=== PATIENT | female | born 1980 | race Caucasian/White ===

== ENCOUNTER 2019-05-22 17:49 | Emergency (ER) | payer OTHER ==
[2019-05-22] MEDS ORDERED: IBUPROFEN 600 MG TABLET (FP) PO ONE ×2 (18:29→20:23)
--- NOTE | 2019-05-22 18:29 | PDOC ---
Rapid Medical Evaluation Time Seen by Provider: 05/22/19 18:25 Medical Evaluation: Allergies Allergy/AdvReac Type Severity Reaction Status Date / Time No Known Allergies Allergy Verified 05/11/13 21:34 05/22/19 18:26 CC: L ear difficulty hearing, head pressure Pt is a 38 y/o female with difficulty hearing in her L ear and frontal head pressure. No fevers. She states the pain is making her nauseated and is giving her some dizziness. Took Tylenol which did not help 2 days ago. Brief exam: No distress, non-toxic, no tenderness to tapping over frontal or maxillary sinuses. Orders: motrin To ED for further evaluation Discharge Disposition - Diagnosis Hearing difficulty of left ear - Referrals - Patient Instructions - Post Discharge Activity
[2019-05-22 18:30] VITALS: TEMP 98.3; BMI 30.2
--- NOTE | 2019-05-22 20:36 | PDOC ---
History of Present Illness - General Chief Complaint: Headache Stated Complaint: HEADACHE Time Seen by Provider: 05/22/19 18:25 History Source: Patient - History of Present Illness Initial Comments: 05/22/19 20:44 Chief complaint: Ear pain and headache Patient is a healthy 38-year-old female with 1 week of worsening ear pain and headache. No fever. Patient is also had dizziness and nausea. Patient is able to ambulate. She complains of a little dizziness now. GENERAL/CONSTITUTIONAL: No fever, weakness. dizziness HEAD, EYES, EARS, NOSE AND THROAT: No change in vision. No ear pain or discharge. No sore throat. CARDIOVASCULAR: No chest pain RESPIRATORY: No shortness of breath or cough GASTROINTESTINAL: No pain, nausea, vomiting, diarrhea or constipation GENITOURINARY: No dysuria MUSCULOSKELETAL: No neck or back pain SKIN: No rash NEUROLOGIC: No headache, vertigo, loss of consciousness, or loss of sensation. GENERAL: The patient is awake, alert, and fully oriented, in no acute distress. HEAD: Normal with no signs of trauma. EYES: Pupils equal, round and reactive to light, sclera anicteric, conjunctiva clear. No nystagmus ENT: Ears: Clear, no erythema, questionable fluid to the left TM, pharynx: no erythema, no exudate, uvula midline NECK: supple CHEST: clear, nontender, rr ABD: soft, nontender BACK: no tenderness or signs of injury EXTREMITIES: Normal range of motion, no edema. NEUROLOGICAL: Normal speech, normal gait. Cranial nerves II through XII grossly intact, no gross focal abnormalities SKIN: Warm, Dry 05/22/19 20:48 Past History - Past Medical History Allergies/Adverse Reactions: Allergies Allergy/AdvReac Type Severity Reaction Status Date / Time No Known Allergies Allergy Verified 05/22/19 18:25 Home Medications: Ambulatory Orders Acetaminophen [Tylenol] 650 mg PO QID PRN 05/22/19 COPD: No - Psycho Social/Smoking Cessation Hx Smoking Status: No Smoking History: Never smoked Number of Cigarettes Smoked Daily: 0 *Physical Exam - Vital Signs Last Vital Signs Temp Pulse Resp BP Pulse Ox 98.3 F 80 16 121/50 L 99 05/22/19 18:26 05/22/19 18:26 05/22/19 18:26 05/22/19 18:26 05/22/19 18:26 ED Treatment Course - Medications Given in the ED: ED Medications Discontinued Medications Generic Name Dose Route Start Last Admin Trade Name Sofia PRN Reason Stop Dose Admin Ibuprofen 600 mg 05/22/19 18:29 05/22/19 20:24 Motrin - PO 05/22/19 18:30 600 mg ONCE ONE Administration Medical Decision Making - Medical Decision Making 05/22/19 20:49 38-year-old female, no significant medical problems with 1 week of worsening difficulty hearing, some dizziness, nausea, ear pain and headache. Patient has no mastoid tenderness. No fever. No gross signs of otitis to the affected ear , questionable fluid. No nystagmus or neuro deficits. No gait disturbance. patient is nauseous. Will give Reglan, Zofran, patient received Motrin for pain. Will get CT of the head to rule out obvious acute issues 05/22/19 21:[address] shows minimal sinusitis. Patient vomited once, does not feel better. Will order labs, fluids, IV Reglan and Ativan, signed out to Johnnie Willis NP 05/22/19 22:54 Discharge - Discharge Information Problems reviewed: Yes Clinical Impression/Diagnosis: Ear pain, left Headache Qualifiers: Headache type: unspecified Headache chronicity pattern: episodic headache Intractability: not intractable Qualified Code(s): R51 - Headache - Follow up/Referral - Patient Discharge Instructions - Post Discharge Activity
[2019-05-22] MEDS ORDERED: ONDANSETRON *ODT* 4 MG TABLET SL ONE (20:37)
[2019-05-22] MEDS ORDERED: METOCLOPRAMIDE HCL INJECTION 10 MG/2 ML VIAL IM ONE (20:37)
[2019-05-22] MEDS ORDERED: METOCLOPRAMIDE HCL INJECTION 10 MG/2 ML VIAL ONE ×2 (20:41→22:36)
[2019-05-22] MEDS ORDERED: ONDANSETRON *ODT* 4 MG TABLET ONE (20:41)
[2019-05-22] MEDS ORDERED: METOCLOPRAMIDE HCL 10 MG TABLET (FP) PO ONE ×2 (20:43→20:44)
[2019-05-22] MEDS ORDERED: METOCLOPRAMIDE HCL INJECTION 10 MG/2 ML VIAL IVPUSH ONE (21:51)
[2019-05-22] MEDS ORDERED: MECLIZINE HCL 25 MG TABLET (FP) PO ONE (21:52)
[2019-05-22] MEDS ORDERED: SODIUM CHLORIDE 1,000 ML IV STA (22:32)
[2019-05-22] MEDS ORDERED: LORazepam 2 MG/ML SDV VIAL ONE (22:37)
[2019-05-22 22:59] LABS: BASO % 0.7 % (0-2.0); EOS % 2.1 % (0-4.5); HEMATOCRIT 31.7 % (32.4-45.2); HEMOGLOBIN 10.3 GM/dL (10.7-15.3); LYMPH % 37.8 % (8-40); MCH 24.6 pg (25.7-33.7); MCHC 32.6 g/dl (32.0-36.0); MEAN CELL VOLUME 75.5 fl (80-96); MONO % 6.8 % (3.8-10.2); NEUT % 52.6 % (42.8-82.8); PLATELET COUNT 242 K/MM3 (134-434); RDW 15.8 % (11.6-15.6); WHITE BLOOD COUNT 7.2 K/mm3 (4.0-10.0)
[2019-05-22 23:24] LABS: ALBUMIN 3.8 g/dl (3.4-5.0); BILIRUBIN,TOTAL 0.2 mg/dL (0.2-1); BLOOD UREA NITROGEN 8.3 mg/dL (7-18); CALCIUM 8.8 mg/dL (8.5-10.1); CREATININE 0.6 mg/dL (0.55-1.3); TOT PROT 7.5 g/dl (6.4-8.2)
--- NOTE | 2019-05-23 00:05 | PDOC ---
*Physical Exam - Vital Signs Last Vital Signs Temp Pulse Resp BP Pulse Ox 98.3 F 80 16 121/50 L 99 05/22/19 18:26 05/22/19 18:26 05/22/19 18:26 05/22/19 18:26 05/22/19 18:26 - Physical Exam General Appearance: Yes: Appropriately Dressed. No: Apparent Distress HEENT: positive: Normal ENT Inspection Neck: positive: Trachea midline, Supple Respiratory/Chest: positive: Lungs Clear, Normal Breath Sounds. negative: Respiratory Distress, Accessory Muscle Use Cardiovascular: positive: Regular Rhythm, Regular Rate, S1, S2. 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 NML intact, Fully Oriented, Alert, Normal Mood/ Affect, Normal Response, Motor Strength 5/5, Other (Gait steady.) ED Treatment Course - LABORATORY CBC & Chemistry Diagram: 05/22/19 22:50 05/22/19 22:51 - ADDITIONAL ORDERS Additional order review: Laboratory Results 05/22/19 05/22/19 22:51 22:50 Sodium 140 Potassium 4.0 Chloride 108 H Carbon Dioxide 25 Anion Gap 7 L BUN 8.3 Creatinine 0.6 Est GFR (CKD-EPI)AfAm 134.01 Est GFR (CKD-EPI)NonAf 115.63 Random Glucose 121 H Calcium 8.8 Total Bilirubin 0.2 AST 21 ALT 34 Alkaline Phosphatase 95 Total Protein 7.5 Albumin 3.8 Lipase 134 Serum , Qual Negative 05/22/19 22:50 RBC 4.20 MCV 75.5 L MCHC 32.6 RDW 15.8 H D MPV 9.0 Neutrophils % 52.6 Lymphocytes % 37.8 Monocytes % 6.8 Eosinophils % 2.1 Basophils % 0.7 - Medications Given in the ED: ED Medications Discontinued Medications Generic Name Dose Route Start Last Admin Trade Name Freq PRN Reason Stop Dose Admin Sodium Chloride 1,000 mls @ 1,000 mls/hr 05/22/19 22:32 05/22/19 22:55 Normal Saline - IV 05/22/19 23:31 1,000 mls/hr ASDIR STA Administration Ibuprofen 600 mg 05/22/19 18:29 05/22/19 20:24 Motrin - PO 05/22/19 18:30 600 mg ONCE ONE Administration Lorazepam 1 mg 05/22/19 21:51 05/22/19 22:55 Ativan Injection - IVPUSH 05/22/19 21:52 1 mg ONCE ONE Administration Lorazepam 1 mg 05/22/19 21:54 05/22/19 22:33 Ativan Injection - IVPUSH 05/22/19 21:55 Not Given ONCE ONE Meclizine HCl 50 mg 05/22/19 21:52 05/22/19 22:33 Antivert - PO 05/22/19 21:53 Not Given ONCE ONE Metoclopramide HCl 10 mg 05/22/19 20:37 05/22/19 21:29 Reglan Injection - IM 05/22/19 20:38 Not Given ONCE ONE Metoclopramide HCl 10 mg 05/22/19 20:43 05/22/19 20:48 Reglan - PO 05/22/19 20:44 10 mg ONCE ONE Administration Metoclopramide HCl 10 mg 05/22/19 21:51 05/22/19 22:55 Reglan Injection - IVPUSH 05/22/19 21:52 10 mg ONCE ONE Administration Ondansetron HCl 4 mg 05/22/19 20:37 05/22/19 20:47 Zofran Odt - SL 05/22/19 20:38 4 mg ONCE ONE Administration ED Progress Note - Progress Note Progress Note: 05/23/19 00:00 Received signout from nurse practitioner Neyda. Briefly this a 38-year-old woman who presents emergency department with left ear pain radiating across frontal head with dizziness throughout the day today. Head CT showed no signs of intracranial injury or cerebellar infarct. Sinus polyp present. Laboratory testing was ordered by previous provider Patient has been given Reglan, Zofran, IV fluids and Ativan 1 mg IV Disposition pending reevaluation 05/23/19 00:02 Medical Decision Making - Medical Decision Making 05/23/19 00:01 Upon reassessment patient noted to be free of dizziness after receiving her medication. Headache is resolved. Patient is ambulatory with steady gait. Patient reports he feels well and is requesting to go home. I discussed the physical exam findings, ancillary test results and final diagnoses with the patient. I answered all of the patient's questions. The patient was satisfied with the care received and felt comfortable with the discharge plan and treatment plan. The patient will call their primary care physician within 24 hours to arrange follow-up and will return to the Emergency Department with any new, persistent or worsening symptoms. 05/23/19 00:02 Discharge - Discharge Information Problems reviewed: Yes Clinical Impression/Diagnosis: Ear pain, left Headache Qualifiers: Headache type: unspecified Headache chronicity pattern: episodic headache Intractability: not intractable Qualified Code(s): R51 - Headache Condition: Stable Disposition: HOME - Admission No - Additional Discharge Information Prescriptions: Amox-Tr/K Cl [Augmentin - 875Mg Tablet] 1 tab PO BID #14 tablet - Follow up/Referral - Patient Discharge Instructions Additional Instructions: Take Augmentin as prescribed. Keep well-hydrated. Your emergency department visit is incomplete until you follow-up with your primary doctor. Return to the emergency department for any new or worsening symptoms. Thank you very much for choosing us to provide your emergent healthcare needs. [place] Augmentin segn lo prescrito. Mantener vidal hidratado. Thompson visita al departamento de emergencias est incompleta hasta que donato un seguimiento con thompson mdico de cabecera. Regrese al departamento de emergencias por cualquier sntoma nuevo o que empeore. Muchas luis felipe por elegirnos para satisfacer karina necesidades de atencin mdica emergentes. - Post Discharge Activity Work/Back to School Note: Back to Work
[2019-05-23 00:35] VITALS: BP 137/64; PULSE 75
== END 2019-05-23 00:30 | disposition home or self-care (01) ==
LOC: JERFT 17:49 → JER 17:49
PROC: 3E0337Z Introduction of Electrolytic and Water Balance Substance into Peripheral Vein, Percutaneous Approach (ICD-10-PCS; principal; 2019-05-22)
PROC: 3E033NZ Introduction of Analgesics, Hypnotics, Sedatives into Peripheral Vein, Percutaneous Approach (ICD-10-PCS; 2019-05-22)
PROC: 3E033GC Introduction of Other Therapeutic Substance into Peripheral Vein, Percutaneous Approach (ICD-10-PCS; 2019-05-22)
DX: R51 Headache (principal); H92.02 Otalgia, left ear
CPT/HCPCS: 36415; 70450-TC; 80053; 83690; 84703; 85025; 99283-25; J7030; Q0162

== ENCOUNTER 2020-12-01 18:21 | Emergency (ER) | payer OTHER ==
[2020-12-01 18:57] VITALS: BP 120/75; PULSE 95; TEMP 99.6; BMI 31.1
[2020-12-01] MEDS ORDERED: KETOROLAC TROMETHAMINE 30 MG/1 ML VIAL IM ONE (20:19)
[2020-12-01] MEDS ORDERED: ONDANSETRON *ODT* 4 MG TABLET SL ONE (20:20)
[2020-12-01] MEDS ORDERED: ONDANSETRON *ODT* 4 MG TABLET ONE (20:42)
[2020-12-01] MEDS ORDERED: KETOROLAC TROMETHAMINE 30 MG/1 ML VIAL ONE (20:42)
== END 2020-12-01 22:06 | disposition home or self-care (01) ==
LOC: JER 18:21
PROC: 3E0233Z Introduction of Anti-inflammatory into Muscle, Percutaneous Approach (ICD-10-PCS; principal; 2020-12-01)
DX: J06.9 Acute upper respiratory infection, unspecified (principal); Z11.52 Encounter for screening for COVID-19
CPT/HCPCS: 71045-TC-FY; 99283-25; C9803; Q0162; U0003; U0005

== ENCOUNTER 2020-12-26 23:29 | Emergency (ER) | payer OTHER ==
[2020-12-27 00:39] VITALS: BMI 29.8
[2020-12-27] MEDS ORDERED: SODIUM CHLORIDE 0.9% 500 ML INFUS.BAG IV ONE (00:54)
[2020-12-27 02:13] LABS: BASO % 0.2 % (0-2.0); HEMATOCRIT 30.4 % (32.4-45.2); HEMOGLOBIN 9.5 GM/dL (10.7-15.3); LYMPH % 7.6 % (8-40); MCHC 31.3 g/dl (32.0-36.0); MEAN CELL VOLUME 67.2 fl (80-96); MEAN PLT VOLUME 8.7 fl (7.5-11.1); MONO % 6.5 % (3.8-10.2); NEUT % 85.7 % (42.8-82.8); PLATELET COUNT 268 10^3/uL (134-434); RBC 4.53 M/mm3 (3.60-5.2); WHITE BLOOD COUNT 8.9 K/mm3 (4.0-10.0)
[2020-12-27 02:33] LABS: ALBUMIN 3.5 g/dl (3.4-5.0); BLOOD UREA NITROGEN 8.5 mg/dL (7-18); CALCIUM 8.2 mg/dL (8.5-10.1)
[2020-12-27 02:37] LABS: CREATININE 0.7 mg/dL (0.55-1.3)
[2020-12-27 02:38] LABS: BILIRUBIN,TOTAL 0.5 mg/dL (0.2-1)
[2020-12-27 03:29] LABS: ANISOCYTOSIS 2+; MACROCYTOSIS 0; PLATELET ESTIMATE NORMAL
[2020-12-27] MEDS ORDERED: KETOROLAC TROMETHAMINE 30 MG/1 ML VIAL ONE (04:09)
[2020-12-27] MEDS ORDERED: KETOROLAC TROMETHAMINE 30 MG/1 ML VIAL IVPUSH ONE (04:14)
[2020-12-27 04:17] VITALS: BP 118/78; PULSE 90; TEMP 101
[2020-12-27 04:45] LABS: EPI CELLS >36 /uL (0-25.1); HYALINE CASTS 2 /uL (0-3.1); URINE APPEARANCE CLEAR; URINE BACTERIA 652 /uL (0-1359); URINE BILIRUBIN NEGATIVE (NEGATIVE); URINE COLOR YELLOW; URINE GLUCOSE (UA) TRACE (NEGATIVE); URINE KETONE 1+ (NEGATIVE); URINE LEUK ESTERASE 1+ (NEGATIVE); URINE NITRITE NEGATIVE (NEGATIVE); URINE PROTEIN TRACE (NEGATIVE); URINE RBC 22 /uL (0-23.9); URINE UROBILINOGEN 0.2 mg/dL (0.2-1.0); URINE WBC 100 /uL (0-25.8)
[2020-12-27] MEDS ORDERED: IBUPROFEN 600 MG TABLET (FP) PO ONE (06:10)
== END 2020-12-27 06:29 | disposition home or self-care (01) ==
LOC: JER 23:29
PROC: 3E033GC Introduction of Other Therapeutic Substance into Peripheral Vein, Percutaneous Approach (ICD-10-PCS; principal; 2020-12-26)
DX: B34.9 Viral infection, unspecified (principal)
CPT/HCPCS: 36415; 71046-TC-FY; 80053; 81003; 85025; 87086; 87186; 87804; 99284-25; C9803; U0003; U0005